=== PATIENT | male | born 1955 | race Caucasian/White ===

== ENCOUNTER 2019-01-28 09:54 | Emergency (ER) | payer BC, OTHER ==
[2019-01-28] MEDS ORDERED: Adacel (T-DAP) 0.5 ML SYRINGE ONE (10:50)
[2019-01-28] MEDS ORDERED: Lidocaine 1% w/Epinephrine 1:100K 20 ML VIAL ONE (11:04)
--- NOTE | 2019-01-28 11:04 | CT ---
CT BRAIN NONCONTRAST: DATE: 01/28/2019 HISTORY: 63-year-old male status post head trauma from fall, acute FINDINGS: There is no evidence of acute intra-axial or extra-axial hemorrhage. There is no midline shift or any other mass effect. There is no extra-axial fluid collection. There is no evidence of obstructive hydrocephalus. Calvarium is intact. IMPRESSION: No acute intracranial findings.
--- NOTE | 2019-01-28 11:12 | CT ---
Exam: Facial bone CT without contrast History fall. Pain. Laceration of the left-sided nose, along the left thigh. Possible lucent left: FINDINGS: Visualized suprahyoid neck demonstrate borderline as well as nonenlarged bilateral soft tis jeanine neck lymph nodes, nonspecific Visualized brain parenchyma is unremarkable Adequate aeration of the visualized paranasal sinuses and mastoid air cells. Coronal reformatted images demonstrate patent bilateral ostiomeatal complexes. Intact nasal septum wi th mild right deviation. The osseous margins of the sinuses are preserved. The osseous margins of the orbits are preserved. The maxilla and mandible are intact. No evidence of fracture. Both mandibul ar condyles are appropriately located. Intact zygomatic arches. Bilateral ocular lenses are appropriately located. Both globes are intact. Retrobulbar fat is preserv ed. Symmetric attenuation of the optic nerves and ocular rectus muscles Limited evaluation of the oral cavity due to extensive dental amalgam artifact. No obvious masses. Mi dline fatty raphae of the tongue is preserved. Left nasal soft tissue swelling. Small focus of air in the soft tissues along the left aspect of the nose likely due to laceration. No obvious foreign body. No evidence of a fracture. IMPRESSION: 1. Soft tissue injury along the left aspect of the nose. No associated fracture. 2. Nonspecific nonenlarged and borderline enlarged lymph nodes. Correlate clinically.
--- NOTE | 2019-01-28 11:13 | CT ---
CT CERVICAL SPINE WITH CORONAL AND SAGITTAL REFORMATIONS AND NO IV CONTRAST: HISTORY: Fall, neck pain FINDINGS: Multilevel degenerative changes are present. No fracture, subluxation or facet malalignment is identified. There is a 12 mm low-density nodule in the left lobe of the thyroid gland. There is mild cervical lym phadenopathy. Further evaluation with thyroid ultrasound followed by contrast-enhanced CT scan of the neck is recommended.
[2019-01-28] MEDS ORDERED: Acetaminophen 325 MG TAB ONE (11:40)
== END 2019-01-28 11:54 | disposition home or self-care (01) ==
LOC: SCSER 09:54
DX: S01.21XA Laceration without foreign body of nose, initial encounter (principal); S01.412A Laceration without foreign body of left cheek and temporomandibular area, initial encounter; S00.12XA Contusion of left eyelid and periocular area, initial encounter; F32.9 Major depressive disorder, single episode, unspecified; E04.1 Nontoxic single thyroid nodule; Z79.899 Other long term (current) drug therapy; Z23 Encounter for immunization; W01.118A Fall on same level from slipping, tripping and stumbling with subsequent striking against other sharp object, initial encounter; Y99.0 Civilian activity done for income or pay
CPT/HCPCS: 12011; 70450; 70486; 72125; 90471; 90715; J2001

== ENCOUNTER 2022-10-01 10:29 | Outpatient (CLI) | payer MEDICARE ==
[2022-10-01 13:06] LABS: #Basophils 0.1 10x3/uL (0.0-0.2); #Eosinphils 0.1 10x3/uL (0.0-0.5); #Monocytes 0.6 10x3/uL (0.0-1.1); #Neutrophils 5.4 10x3/uL (1.5-8.4); %Basophils 0.6 % (0.0-2.0); %Eosinophils 1.8 % (0.0-6.0); %Lymphocytes 21.9 % (18.0-47.0); %Monocytes 7.3 % (0.0-10.0); %Neutrophils 68.1 % (40.0-75.0); Hemoglobin 13.5 g/dL (13.5-17.5); Mean Corpuscular HGB CONC 35.1 g/dL (32.0-36.0); Mean Corpuscular Hemoglobin 30.6 pg (27.0-33.0); Mean Corpuscular Volume 87.3 fl (81.2-95.1); Platelet Count 374 10x3/uL (150-450); RBC Distribution Width 12.7 % (11.5-14.5); Red Blood Cell (RBC) Count 4.41 10x6/uL (4.32-5.72); White Blood Cell (WBC) Count 7.9 10x3/uL (3.5-10.5)
[2022-10-01 13:23] LABS: INR-International Normal Ratio 0.9; Prothrombin Time 10.3 sec (9.5-12.1)
[2022-10-01 13:31] LABS: Anion Gap 15 mmol/L (10-20); BUN (Urea Nitrogen) 12 mg/dL (8.4-25.7); Calc. Creatinine Clearance 0 mL/min (70-130); Calcium 9.5 mg/dL (7.8-10.44); Carbon Dioxide 23 mmol/L (23-31); Chloride 104 mmol/L (98-107); Estimated GFR 94; Glucose 214 mg/dL (80-115); Potassium 4.5 mmol/L (3.5-5.1); Sodium 137 mmol/L (136-145)
== END 2022-10-01 10:30 | disposition home or self-care (01) ==
LOC: LABBT 10:29
PROVIDERS: ATTEND Orthopaedic Surgery
DX: Z01.818 Encounter for other preprocedural examination (principal); M17.12 Unilateral primary osteoarthritis, left knee
CPT/HCPCS: 80048; 85025; 85610; 87081; 93005; 93010

== ENCOUNTER 2022-10-02 05:36 | Observation (INO) | payer MEDICARE ==
[2022-10-01 12:06] VITALS: BMI 24.7
[2022-10-02] MEDS ORDERED: Tranexamic Acid 1,000 MG/10 ML VIAL ONE (06:02)
[2022-10-02] MEDS ORDERED: Sodium Chloride 0.9% 100 ML ONE ×2 (06:02→07:07)
[2022-10-02] MEDS ORDERED: Vancomycin (BATCH) 1.5 GRAM/300 ML BAG ONE (06:02)
[2022-10-02] MEDS ORDERED: Bupivacaine PF 0.5% 30 ML VIAL ONE ×2 (06:29→06:36)
[2022-10-02] MEDS ORDERED: Fentanyl 100 MCG/2 ML VIAL ONE (06:36)
[2022-10-02] MEDS ORDERED: Midazolam HCl 2 mg/2 ml Vial ONE (06:36)
[2022-10-02] MEDS ORDERED: CEFAZOLIN 2 GM VIAL ONE (07:07)
[2022-10-02 07:21] LABS: SARS-CoV-2 NAA Rapid Test Not Detected (NotDetected)
[2022-10-02] MEDS ORDERED: PROPOFOL 200 MG/20 ML VIAL ONE (07:22)
[2022-10-02] MEDS ORDERED: Ondansetron PF 4 MG/2 ML Vial ONE (07:22)
[2022-10-02] MEDS ORDERED: Dexamethasone 20 MG/5 ML VIAL ONE (07:22)
[2022-10-02] MEDS ORDERED: Bupivacaine HCl 0.5%/Epinephrine 1:200,000/PF 30 ml Vial ONE (07:22)
[2022-10-02] MEDS ORDERED: Lidocaine 1% PF 5 ML VIAL ONE (07:22)
[2022-10-02] MEDS ORDERED: ePHEDrine 50 MG/ML VIAL ONE (07:22)
[2022-10-02] MEDS ORDERED: Ondansetron PF 4 MG/2 ML Vial IVP PRN ×2 (07:23→07:30)
[2022-10-02] MEDS ORDERED: Acetaminophen 325 MG TAB PO PRN (07:23)
[2022-10-02] MEDS ORDERED: HYDROcodone/Acetaminophen 10/325 mg Tablet PO PRN ×4 (07:23→07:30)
[2022-10-02] MEDS ORDERED: Fentanyl 100 MCG/2 ML VIAL SLOW IVP PRN (07:23)
[2022-10-02] MEDS ORDERED: diphenhydrAMINE 25 MG CAP PO PRN (07:23)
[2022-10-02] MEDS ORDERED: Zolpidem Tartrate 5 MG TAB PO PRN ×2 (07:23→07:30)
[2022-10-02] MEDS ORDERED: Promethazine HCl 25 MG/ML VIAL IM PRN ×3 (07:23→08:56)
[2022-10-02] MEDS ORDERED: traMADol HCl 50 MG TAB PO PRN ×2 (07:30)
[2022-10-02] MEDS ORDERED: Ropivacaine 0.2% 550 ML 550 ML NERVE BLCK SCH (07:30)
[2022-10-02] MEDS ORDERED: Fentanyl 100 MCG/2 ML VIAL IV PRN (07:31)
[2022-10-02] MEDS ORDERED: Morphine 10 MG/ML VIAL ONE (07:54)
[2022-10-02] MEDS ORDERED: Ondansetron HCl/PF 4 MG/2 ML Vial IVP PRN (08:56)
[2022-10-02] MEDS: Atorvastatin Calcium 10 MG TAB PO SCH (10:06)
[2022-10-02] MEDS: Aspirin 81 mg Enteric Coated Tablet PO SCH ×2 (10:07→20:20)
[2022-10-02] MEDS: Sertraline 25 MG TAB PO SCH (10:07)
[2022-10-02] MEDS: metFORMIN 500 MG TAB PO SCH ×2 (10:13→17:35)
[2022-10-02] MEDS: Sodium Chloride 0.9% 1,000 ML IV SCH ×2 (10:44→17:29)
[2022-10-02] MEDS: Ketorolac Tromethamine 30 MG/ML VIAL IVP SCH ×3 (11:29→23:27)
[2022-10-02] MEDS ORDERED: Ketorolac Tromethamine 30 MG/ML VIAL IVP SCH (14:00)
[2022-10-02] MEDS: CEFAZOLIN 2 GM in Sodium Chloride 0.9% 100 ML IVPB SCH ×2 (15:08→23:26)
[2022-10-03] MEDS: Sodium Chloride 0.9% 1,000 ML IV SCH (00:43)
[2022-10-03] MEDS: Ketorolac Tromethamine 30 MG/ML VIAL IVP SCH (05:33)
[2022-10-03 05:44] VITALS: TEMP 98
[2022-10-03] MEDS ORDERED: Levothyroxine Sodium 25 MCG TAB PO SCH (06:00)
[2022-10-03] MEDS ORDERED: Levothyroxine Sodium 112 MCG TAB PO SCH (06:00)
[2022-10-03 07:24] LABS: Hemoglobin 10.8 g/dL (14.0-18.0); Mean Corpuscular HGB CONC 33.8 g/dL (32.0-36.0); Mean Corpuscular Hemoglobin 31.1 pg (27.0-31.0); Mean Platelet Volume 6.7 fL (7.4-10.4); Platelet Count 282 10x3/uL (130-400); RBC Distribution Width 11.7 % (11.5-14.5); Red Blood Cell (RBC) Count 3.45 mill/uL (4.70-6.10)
[2022-10-03] MEDS: Atorvastatin Calcium 10 MG TAB PO SCH (07:36)
[2022-10-03] MEDS: Sertraline 25 MG TAB PO SCH (07:36)
[2022-10-03] MEDS: metFORMIN 500 MG TAB PO SCH (07:36)
[2022-10-03] MEDS: Aspirin 81 mg Enteric Coated Tablet PO SCH (07:36)
[2022-10-03] MEDS ORDERED: Ferrous Gluconate 324 MG TAB PO SCH (08:00)
[2022-10-03 08:50] VITALS: BP 155/83
[2022-10-03] MEDS ORDERED: Senokot S 8.6-50 MG TAB PO SCH (09:00)
[2022-10-03] MEDS ORDERED: Multivitamin W/ Minerals 1 TAB PO SCH (09:00)
== END 2022-10-03 10:38 | disposition home or self-care (01) ==
LOC: SDC 05:36 → SJJU 07:24 → SDC 10:45
PROVIDERS: ADMIT Orthopaedic Surgery; ATTEND Orthopaedic Surgery
PROC: 0SRD0J9 Replacement of Left Knee Joint with Synthetic Substitute, Cemented, Open Approach (ICD-10-PCS; principal; 2022-10-02)
DX: M17.12 Unilateral primary osteoarthritis, left knee (principal); E11.9 Type 2 diabetes mellitus without complications; Z79.84 Long term (current) use of oral hypoglycemic drugs; Z79.890 Hormone replacement therapy; Z79.899 Other long term (current) drug therapy; Z20.822 Contact with and (suspected) exposure to COVID-19
CPT/HCPCS: 20985; 27447; 73560; 82962; 85027; 97110 ×2; 97116 ×2; 97530; A4306; C1713; C1776; J3370; U0002; 36415; 36416; J1100; J1885; J2250; J2270; J2405; J2704; J2795; J3010; J3490; S0020